=== PATIENT | female | born 2005 | race Caucasian/White ===

== ENCOUNTER 2023-03-13 17:56 | Emergency (ER) | payer OTHER, SELFPAY ==
[2023-03-13 18:00] VITALS: BP 127/99
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
[2023-03-13 20:25] VITALS: BP 119/65
== END 2023-03-13 20:48 | disposition home or self-care (01) ==
LOC: EMR 17:56
PROVIDERS: EMERGENCY PHYSICIAN Emergency Medicine; FAMILY PHYSICIAN Family Medicine
DX: S06.0XAA Concussion with loss of consciousness status unknown, initial encounter (principal); S16.1XXA Strain of muscle, fascia and tendon at neck level, initial encounter; Y04.8XXA Assault by other bodily force, initial encounter
CPT/HCPCS: 99284; 70450; 72125